=== PATIENT | female | born 1970 | race Caucasian/White ===

== ENCOUNTER 2017-09-11 12:01 | Emergency (ER) | payer OTHER ==
[2017-09-11 12:58] VITALS: BP 114/70
--- NOTE | 2017-09-11 13:16 | UC ---
Lower Extremity/Ankle HPI - HPI Summary HPI Summary: She was at work and fell by rolling her right ankle and then hitting her left knee. She has been able to walk on both of these injuries since the fall but there is no pain in the left knee whatsoever with movement or bearing wt. There is tenderness at the discrete area of swelling just below the patella. she is not on blood thinners. There is some swelling of the right ankle. - History of Current Complaint Chief Complaint: UCLowerExtremity Stated Complaint: RT ANKLE/LEFT KNEE INJURY Time Seen by Provider: 09/11/17 13:02 Hx Obtained From: Patient Hx Last Menstrual Period: 09/11/17 ?: No Onset/Duration: Sudden Onset, Lasting Hours Severity Initially: Moderate Severity Currently: Moderate Aggravating Factor(s): Standing, Ambulation Alleviating Factor(s): Rest Able to Bear Weight: Yes - Allergies/Home Medications Allergies/Adverse Reactions: Allergies Allergy/AdvReac Type Severity Reaction Status Date / Time No Known Allergies Allergy Verified 09/11/17 12:52 Home Medications: Home Medications [id number] [Excedrin Migraine] 1 tab PO ONCE PRN 09/11/17 [ History Confirmed 09/11/17] PMH/Surg Hx/FS Hx/Imm Hx Previously Healthy: Yes - Surgical History Surgical History: Yes Surgery Procedure, Year, and Place: Right Breast Biopsy, 2011 - Family History Known Family History: Positive: None Family History: no family history of cardio-vascular disorders - Social History Occupation: Employed Part-time Alcohol Use: Rare Substance Use Type: None Smoking Status (MU): Never Smoked Tobacco - Immunization History Most Recent Influenza Vaccination: not this season Most Recent Tetanus Shot: 03/29/12 Vaccination Up to Date: Yes Review of Systems Skin: Bruising Musculoskeletal: Arthralgia - isolated to the right ankle. All Other Systems Reviewed And Are Negative: Yes Physical Exam Triage Information Reviewed: Yes Appearance: Well-Appearing, No Pain Distress, Obese Vital Signs: Initial Vital Signs Temp 98.4 F 09/11/17 12:53 Pulse 106 09/11/17 12:53 Resp 20 09/11/17 12:53 BP 114/70 09/11/17 12:53 Pulse Ox 100 09/11/17 12:53 Vital Signs Reviewed: Yes Eye Exam: Normal Eyes: Positive: Conjunctiva Clear ENT: Positive: Normal ENT inspection Neck exam: Normal Neck: Positive: Supple, Nontender, No Lymphadenopathy Respiratory: Positive: Chest non-tender, Lungs clear, Normal breath sounds, No respiratory distress, No accessory muscle use. Negative: Respiratory distress, Decreased breath sounds, Accessory muscle use, Crackles, Rhonchi, Stridor, Wheezing Cardiovascular: Positive: RRR, No Murmur, Pulses Normal, Brisk Capillary Refill Abdomen Description: Positive: Nontender, No Organomegaly. Negative: Distended , Guarding Musculoskeletal: Positive: Strength Intact, ROM Intact, No Edema Neurological: Positive: Alert, Muscle Tone Normal. Negative: Fatigued Skin Exam: Other - Left lemon sized bruise raised below the left patella. No kelsi tenderness. No pain with rom. No laxity or pain with valgus or varus stress. There is right lateral ankle tenderness. No bruising there. No tenderness of the proximal fibula or 5th metatarsal. Lower Extremity Course/Dx - Differential Dx/Diagnosis Differential Diagnosis/HQI/PQRI: Contusion, Fracture (Closed), Sprain, Strain, Tendonitis Provider Diagnoses: left knee hematoma. right ankle sprain. Discharge - Discharge Plan Condition: Good Disposition: HOME Patient Education Materials: Ankle Sprain (ED) Referrals: Ifeanyi Hale [Primary Care Provider] -
--- NOTE | 2017-09-11 13:43 | RAD ---
Indication: RIGHT ankle trauma; lateral malleolus tenderness. Comparison: No relevant prior exams available on the [facility] for comparison. Technique: AP, mortise, and lateral views RIGHT ankle. REPORT AND IMPRESSION: Normal articular alignment. Tiny ossific fragments are visualized inferior to both the medial and lateral malleoli which may be chronic reflect sequela of ligamentous avulsion. No macroscopic malleoli fracture evident. No suggestion of talocrural joint effusion. Soft tissue swelling without significant focality.
== END 2017-09-11 13:38 | disposition home or self-care (01) ==
LOC: UCCORT 12:01
DX: S80.02XA Contusion of left knee, initial encounter (principal); S93.401A Sprain of unspecified ligament of right ankle, initial encounter; W18.30XA Fall on same level, unspecified, initial encounter; Y93.9 Activity, unspecified; Y92.9 Unspecified place or not applicable; Y99.0 Civilian activity done for income or pay; E66.9 Obesity, unspecified
CPT/HCPCS: 99211; G0463